=== PATIENT | female | born 1990 | race African-American/Black ===

== ENCOUNTER 2018-01-20 16:15 | Emergency (ER) | payer MEDICAID ==
[~2018-01-20] VITALS: Ht 167.6 cm; Wt 74.0 kg
[2018-01-20 16:39] VITALS: BP 113/62
== END 2018-01-20 19:10 | disposition left against medical advice (07) ==
LOC: ER 16:15
DX: M25.532 Pain in left wrist (principal)
CPT/HCPCS: 99281